=== PATIENT | male | born 1955 | race Caucasian/White ===

== ENCOUNTER → 2017-01-26 | Outpatient (CLI) | payer BC ==
[2017-01-26 16:18] LABS: EKG EKG PERFORMED
[2017-01-26 17:05] LABS: Prothrombin Time 10.3 sec (9.0-12.0)
[2017-01-26 17:06] LABS: CHCM 35.4; HCT 49.1 % (39.0-53.0); HDW 2.42; HGB 16.8 gm/dL (13.0-17.5); MCH 30.1 pg (25.0-35.0); MCHC 34.2 g/dL (31.0-37.0); MCV 87.9 fL (80.0-100.0); Mean Platelet Volume 6.9; RBC 5.59 m/uL (4.30-5.90); RDW 12.3 % (11.5-15.5); WBC 5.2 k/uL (3.8-10.6)
[2017-01-26 17:07] LABS: Appearance,Urine Clear (Clear); Bilirubin,Urine Negative (Negative); Glucose,Urine (UA) Negative (Negative); Ketones,Urine Negative (Negative); Leukocyte Esterase,Urine Negative (Negative); Nitrite,Urine Negative (Negative); PH, Urine 6.5 (5.0-8.0); Protein,Urine Trace (Negative); Specific Gravity,Urine 1.022 (1.001-1.035); UA Billing (MACRO vs. MICRO) CHEM; Urobilinogen,Urine <2.0 mg/dL (<2.0)
[2017-01-26 17:09] LABS: ALT 28 U/L (21-72); AST 17 U/L (17-59); Alkaline Phosphatase 53 U/L (38-126); Anion Gap 11 mmol/L; Blood Urea Nitrogen 17 mg/dL (9-20); Calcium 9.9 mg/dL (8.4-10.2); Carbon Dioxide 24 mmol/L (22-30); Chloride 106 mmol/L (98-107); Glucose 86 mg/dL (74-99); Non-African American GFR(MDRD) >60 (>60 ml/min/1.73 sqM); Potassium 4.7 mmol/L (3.5-5.1); Sodium 141 mmol/L (137-145); Total Bilirubin 2.3 mg/dL (0.2-1.3)
== END | disposition home or self-care (01) ==
LOC: LABPAT 16:10
PROVIDERS: ATTEND Orthopaedic Surgery
DX: Z01.810 Encounter for preprocedural cardiovascular examination (principal); Z01.812 Encounter for preprocedural laboratory examination
CPT/HCPCS: 80053; 81003; 85027; 85610; 85730; 87070; 93005

== ENCOUNTER 2017-02-11 07:30 | Inpatient (IN) | payer BC ==
[2017-02-02 12:58] VITALS: BMI 29.4
[~2017-02-11 07:30] MED LIST: ACETAMINOPHEN TAB 500 MG TAB PO ONE; FAMOTIDINE 20 MG/2 ML VIAL IV PRN; HYDROmorphone 1 MG/ML 1 ML SYRINGE IVP PRN; LIDOCAINE 1% 20 ML VIAL (10MG/ML) FOR IV START INTRADERMA PRN; MELOXICAM 7.5 MG TAB PO ONE; MIDAZOLAM 2 MG/2 ML VIAL IV PRN; TRANEXAMIC ACID 1,000 MG in SODIUM CHLORIDE 0.9% 100 ML IVPB ONE; ceFAZolin 2 GM in SODIUM CHLORIDE 0.9% 100 ML IVPB ONE; fentaNYL (PF) 50 MCG/ML 20 ML VIAL IVP PRN
[2017-02-11] MEDS: LACTATED RINGERS 1,000 ML IV SCH (11:45)
[2017-02-11] MEDS ORDERED: DIAZEPAM 5 MG TAB PO PRN ×2 (11:46)
[2017-02-11] MEDS ORDERED: HYDROmorphone 1 MG/ML 1 ML SYRINGE IVP PRN ×3 (11:46)
[2017-02-11] MEDS ORDERED: NA PHOS,M-B/NA PHOS,DI-BA 133 ML ENEMA RECTAL PRN (11:46)
[2017-02-11] MEDS ORDERED: ONDANSETRON 4 MG/2 ML VIAL IVP PRN (11:46)
[2017-02-11] MEDS ORDERED: BISACODYL 10 MG SUPP RECTAL PRN (11:46)
[2017-02-11] MEDS ORDERED: MAGNESIUM HYDROXIDE 2,400 MG/10 ML CUP PO PRN (11:46)
[2017-02-11] MEDS ORDERED: NALOXONE 0.4 MG/ML 1 ML VIAL IV PRN (11:46)
[2017-02-11] MEDS: ROPIVACAINE 246.25 MG, EPINEPHrine 0.5 MG, KETOROLAC 30 MG, cloNIDine HCL/PF 80 MCG, WA... MISCELLANE ONE ×10 (13:13→13:56)
[2017-02-11] MEDS ORDERED: ceFAZolin 3,000 MG in SODIUM CHLORIDE 0.9% IRRIGATIO 3,000 ML IRRIGATION ONE (13:17)
--- NOTE | 2017-02-11 14:19 | P.OP ---
Date of Procedure: 02/11/17 Preoperative Diagnosis: Severe osteoarthritis of the right knee with a valgus deformity Postoperative Diagnosis: Severe osteoarthritis of the right knee with a valgus deformity Procedure(s) Performed: Right total knee arthroplasty Implants: Castañeda and Nephew Oxinium femoral component size 6, right, posterior stabilized Castañeda & Nephew Tonja II right nonporous tibial baseplate size 6 Castañeda [employer] Nephew size 9 mm Legion XLPE constrained articular insert, size 5-6 Castañeda [employer] Nephew Tonja II resurfacing patellar component, 35 mm All components were cemented using [place] antibiotic Simplex P bone cement with tobramycin The articulation is ceramic on polyethylene. Anesthesia: spinal Surgeon: Reynold Colon [employer]ovoltaic Testing Technician #1: Joselyn Marrero Estimated Blood Loss (ml): 50 Pathology: other (Bone and cartilage) Condition: stable Disposition: PACU Indications for Procedure: After failure of conservative treatment we discussed the surgical and nonsurgical treatment options at length. Patient wishes to proceed with a total knee arthroplasty. Complications specific to this procedure were discussed at length, including but not limited to infection, bleeding, stiffness , and nerve injury. Patient is aware of all these complications and informed consent was obtained Operative Findings: The operative findings are consistent with severe osteoarthritis the right knee with a significant valgus deformity. Description of Procedure: Patient was seen in the preoperative area consent was reviewed and operative site was marked with a skin marker. Patient was then brought to the operating room and given preoperative antibiotics intravenously. A spinal anesthetic was administered by the anesthesia department. A tourniquet was placed on the upper thigh and the lower extremity was prepped and draped in usual sterile fashion. A gram of transexamic acid was given. A universal timeout was then performed which confirmed the patient's name, surgical site, ALLERGIES, and consent. The lower extremity was then exsanguinated and tourniquet was inflated to 250 mmHg. A standard and anterior midline approach to the knee was performed. The skin and subcutaneous tissue was dissected down to the patellar tendon. A medial parapatellar arthrotomy was then performed. The knee was then extended, the patellar was everted, and the knee was again flexed. Anterior horns of both menisci were excised, and a minimal medial release was performed because of the valgus deformity of the knee.. On gross visual inspection, there was complete loss of articular cartilage in all 3 compartments of the knee. There was also significant cartilage damage in the lateral compartment. There were multiple periarticular osteophytes which were then removed with a Ronguer. The femoral canal was then opened with the appropriate drill, and the intramedullary femoral cutting guide was then placed and set for 4 of valgus. The distal femoral cutting block was then pinned in place, and the distal femur was then cut. The cutting block was then removed and the cut was checked for flatness. Next, the sizing guide was then placed and set for 3 external rotation based off of the epicondylar axis and Whitesides line. After the femur was sized, the appropriate 4-in-1 cutting block was then pinned in place. The anterior condyles were cut without notching. The posterior and chamfer cuts were performed while protecting the collateral ligaments. The cutting block was then removed. Attention was then directed to the tibia. The remaining ACL was removed with a Ronguer, and the tibia was then gently subluxed forward with a large bent knee retractor. Any remaining menisci was excised. The posterior lateral corner was cauterized in order to cauterize the lateral geniculate artery. The extra medullary tibial cutting guide was then placed, set for the appropriate rotation , slope, and depth of resection. The proximal tibia cutting guide was then pinned in place. Proximal tibia was then cut and sized. The femoral trial was then placed. The box cutting guide was placed and then using the appropriate reamer, the bone was reamed for the box. Then the box osteotome was used to finish the reaming. Next trials were then placed with the appropriate-sized insert. The knee was able to fully extend and flex to 130 and was stable throughout all range of motion. The knee was then extended, patella everted. Patella was then measured, and then using an osteotomy guide, the patella was cut at the appropriate level. The patella was then measured and drilled and the patella trial was then placed. The knee was then taken through range of motion with the patella trial and the patella tracked normally. The knee was then extended patella trial was then removed and the patella was everted. Knee was then flexed and lug holes were drilled through the femoral trial and the femoral trial was then removed. The tibial was then exposed, and the tibial broach guide was then pinned in place after it was set for the appropriate rotation to allow for the most coverage without overhang. The tibia was then broached. The cut surfaces of bone were then irrigated with pulsatile lavage. The posterior structures were injected with the ropivacaine solution. The components were then opened, the cement was mixed, and the components were then cemented in place. The cement was allowed to harden with the knee in full extension. While the cement was hardening, the remaining soft tissues were injected with the ropivacaine solution. After the cemented hardened. The tourniquet was released, and hemostasis was obtained. A second gram of transexamic acid was given. The knee was again irrigated. The knee was again taken through range of motion and found to be stable throughout all range of motion of 0-130, and the patella tracked normally. The fascia was then closed with #2 strata fix suture. The subcutaneous tissue was closed with 3-0 Vicryl and 3-0 strata fix. Dermabond tape was used for the skin, and the patient was placed in a sterile dressing. Patient was then transferred to recovery room in stable condition. The drafter assistant JAQUELINE Cole was required due the complexity surgery and the need for a skilled surgical brace maker. She assisted in positioning, draping, retraction, and closure of the wound.
--- NOTE | 2017-02-11 14:59 | XR ---
EXAMINATION TYPE: XR knee limited RT, 2 VIEWS DATE OF EXAM ORDERED: 02/11/2017 HISTORY: Right knee arthroplasty. COMPARISON: None. FINDINGS: A right knee arthroplasty has been performed. Prosthetic elements appear in good position. There is subcutaneous and intra-articular air. IMPRESSION: STATUS POST RIGHT ARTHROPLASTY.
[2017-02-11] MEDS ORDERED: ROPIVACAINE 1,100 MG, SODIUM CHLORIDE 0.9% 330 ML MISCELLANE PRN ×2 (15:56)
--- NOTE | 2017-02-11 15:58 | P.ONQ ---
Anesthesiology Proc Note - PNB - Peripheral Nerve Block Performed Right Adductor Canal Infusion Time Out Performed: Yes Indication: Acute Post-Operative Pain, Analgesia Specifically requested for management of pain by DrTerry: Reynold Colon Sedation Type: Sedate with meaningful contact maintained Preparation: Sterile Prep Position: Supine Catheter Depth at Skin (cm): 5 Catheter: Indwelling Needle Types: Other (see comment) (PAJunk) Needle Size: 100mm (4") Needle Gauge: 21 Technique: Ultrasound Injectate: 0.5% Ropivacaine (see comment for volume) (20 cc) Blood Aspirated: No Pain Paresthesia on Injection Noted: No Resistance on Injection: Normal Events: Uneventful and Well Tolerated
[2017-02-11] MEDS: SODIUM CHLORIDE 0.9% 1,000 ML IV SCH (16:48)
[2017-02-11] MEDS: HYDROcodone/APAP 5-325MG 1 EACH TAB PO PRN (18:37)
[2017-02-11 19:50] LABS: ALT 25 U/L (21-72); AST 16 U/L (17-59); Alkaline Phosphatase 37 U/L (38-126); Anion Gap 8 mmol/L; Blood Urea Nitrogen 13 mg/dL (9-20); Calcium 8.5 mg/dL (8.4-10.2); Carbon Dioxide 25 mmol/L (22-30); Chloride 105 mmol/L (98-107); Glucose 87 mg/dL (74-99); Non-African American GFR(MDRD) >60 (>60 ml/min/1.73 sqM); Potassium 3.6 mmol/L (3.5-5.1); Sodium 138 mmol/L (137-145); Total Bilirubin 1.7 mg/dL (0.2-1.3); Total Protein 5.6 g/dL (6.3-8.2)
[2017-02-11] MEDS: ceFAZolin 2 GM in SODIUM CHLORIDE 0.9% 100 ML IVPB SCH (21:03)
[2017-02-11] MEDS: SENNOSIDES-DOCUSATE SODIUM 1 EACH TAB PO SCH (21:03)
[2017-02-12] MEDS: ASPIRIN 325 MG TAB PO SCH ×3 (00:37→21:45)
[2017-02-12] MEDS: HYDROcodone/APAP 5-325MG 1 EACH TAB PO PRN ×4 (03:19→22:47)
[2017-02-12] MEDS: ceFAZolin 2 GM in SODIUM CHLORIDE 0.9% 100 ML IVPB SCH (04:18)
[2017-02-12 06:59] LABS: Basophils % (A) 0 %; CH 31.3; CHCM 34.4; Eosinophils # (A) 0.1 k/uL (0-0.7); Eosinophils % (A) 1 %; HCT 40.7 % (39.0-53.0); HDW 2.33; Luc # (Auto) 0.05; Luc % (Auto) 1; Lymphocytes # (A) 0.8 k/uL (1.0-4.8); Lymphocytes % (A) 9 %; MCH 30.7 pg (25.0-35.0); MCHC 33.5 g/dL (31.0-37.0); MCV 91.5 fL (80.0-100.0); Mean Platelet Volume 7.4; Monocytes # (A) 0.5 k/uL (0-1.0); Monocytes % (A) 6 %; Neutrophils # (A) 6.7 k/uL (1.3-7.7); Neutrophils % (A) 83 %; RBC 4.45 m/uL (4.30-5.90); RDW 13.1 % (11.5-15.5); WBC 8.1 k/uL (3.8-10.6); WBC (Perox) 8.68
[2017-02-12 07:09] LABS: HGB 13.6 gm/dL (13.0-17.5)
[2017-02-12] MEDS: LACTATED RINGERS 1,000 ML IV SCH (08:34)
[2017-02-12] MEDS: SODIUM CHLORIDE 0.9% 1,000 ML IV SCH ×2 (08:35→17:47)
[2017-02-12] MEDS: MELOXICAM 7.5 MG TAB PO SCH (08:37)
[2017-02-12] MEDS: hydrOXYzine PAMOATE 25 MG CAP PO PRN ×2 (08:41→16:27)
--- NOTE | 2017-02-12 09:40 | CONS ---
REASON FOR CONSULTATION: Advise regarding hepatitis and other medical issues. Requested by orthopedic surgery. HISTORY OF PRESENT ILLNESS: This 61-year-old gentleman with the past medical history of liver disease, GERD, history of hepatitis B previously, history of DJD, being followed by Dr. Nina. He was admitted after total right knee joint arthroplasty by Dr. Colon. There is no history of any fevers or rigors. No history of headache, loss of consciousness or seizures. PAST MEDICAL HISTORY: History of GERD, liver disease, DJD. MEDICATIONS PRIOR TO ADMISSION: 1. Senna one tablet p.o. b.i.d. 2. Hydrocodone 5 mg q4-6h p.r.n. 3. Aspirin 325 mg p.o. daily. ALLERGIES: None. FAMILY HISTORY: History of cancer in the family. SOCIAL HISTORY: No history of smoking, no history of alcohol intake. REVIEW OF SYSTEMS: ENT: No diminished hearing. CARDIOVASCULAR: No angina. RESPIRATORY: No cough or hemoptysis. GI: No nausea. : No dysuria. NERVOUS SYSTEM: No numbness or weakness. MUSCULOSKELETAL: As mentioned earlier. HEMATOLOGY: neg ENDOCRINE: No history of diabetes or hypothyroidism. CONSTITUTIONAL: As mentioned earlier. Alert and oriented x 3. PSYCHIATRIC: As mentioned earlier. PHYSICAL EXAMINATION: Alert and oriented x3. Pulse 74, blood pressure 111/61, respirations 18, temperature normal. Pulse ox 94% on 3 liters. HEENT: Conjunctivae normal. NECK: No JVD. CARDIOVASCULAR: S1/S2 heard. RESPIRATORY: Lungs sounds diminished at the bases. No rhonchi, no crackles. ABDOMEN: Soft, nontender. LEGS: Status right knee arthroplasty. NERVOUS SYSTEM: No focal deficits. LABS: Troponin is 2.3. Otherwise, previous labs are negative. ASSESSMENT: 1. Status post right total knee arthroplasty. 2. 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 3. History of hepatitis B. 4. History of degenerative joint disease. 5. History of gastroesophageal reflux disease. RECOMMENDATIONS AND DISCUSSION: This 61-year-old gentleman presented for orthopedic surgery. At this time I recommend to continue current medication, continue symptomatic treatment. I recommend pain medication, incentive spirometry. Also recommend repeat labs including the CMP. Otherwise, we will monitor the patient closely. The patient will be asked to follow up with the primary care physician closely. Thank you, Dr. Colon, for letting us participate in the care of this patient. ERVIN
--- NOTE | 2017-02-12 10:08 | P.PN ---
Progress Note - Text 0910 anesthesia POD 1. Patient is status post right TKR with a right adductor canal catheter placed for postoperative pain relief. With ropivacaine 0.2% running at 12 mL per hour the patient's VAS is (3, 5). Catheter site is clean dry and intact. Assessment: Adequate pain relief. Plan: As before.
--- NOTE | 2017-02-12 11:11 | P.PN ---
Progress Note - Text Patient is a very pleasant 61-year-old male who is seen and examined at bedside following evaluation after undergoing a right total knee arthroplasty performed by Dr. Reynold Colon yesterday, 02/03/2017. Postsurgically, patient states his pain has been well-controlled. He feels he is improving already postsurgically. He has been able to ambulate the hallways with the assistance of physical therapy and a walker. He's been able to ambulate to the restroom significant difficulty. He currently denies any nausea, vomiting, fever, chills. He has been eating without significant difficulty. He states he had a large bowel movement this morning. He has no new complaints. Patient currently has an On-Q pain pump intact that has been working without difficulty. A CPM machine has been ordered and prescription has been signed. Physical Exam Right Total Knee Arthroplasty: Status post surgical day number 1 Patient is awake, alert, and oriented 3 Vital signs stable Good chest excursion with deep inspiration and expiration Abdomen soft nontender No signs or symptoms of DVT; no calf pain Dressing is clean, dry, and intact; no erythema, purulence, or signs of infection Patient has full foot and ankle motion without difficulty bilateral lower extremities Dorsiflexion and plantar flexion positive sustained bilaterally Neurovascular status left lower extremity intact Capillary refill lower extremity is bilaterally less than 2 seconds On-Q pain pump intact Assessment: Status post right total knee arthroplasty Plan: 1. Patient to remain weight-bear as tolerated on the lower extremity; patient may work with physical therapy to increase mobility and ambulation; ambulate with the assistance of a walker as needed 2. Continue pain control with oral and IV pain medications and On-Q pain pump as prescribed as needed 3. Dr. Child in Medicine to continue following the patient for his other medical issues 4. Patient to continue with anticoagulation therapy; currently on aspirin 325 mg 2 tabs daily 5. We'll continue to follow the patient; if the patient continues to improve, we may plan to discharge him home as early as tomorrow, 02/13/2017 6. Patient will plan to follow-up with Dr. Reynold Colon at [facility] in 2-3 weeks following discharge
[2017-02-12] MEDS: SENNOSIDES-DOCUSATE SODIUM 1 EACH TAB PO SCH (21:45)
--- NOTE | 2017-02-13 07:29 | PN ---
DATE OF SERVICE: 02/12/17 This 61-year-old gentleman was admitted with knee joint arthroplasty, improved significantly. No chest pain. No palpitations. No fever. PHYSICAL EXAMINATION: On exam, alert and oriented times three. Pulse 74. Blood pressure 127/72. Respiratory rate 16. Temperature 97.4 degrees. Pulse ox 94% on room air. HEENT: Conjunctivae normal. NECK: No JVD. Cardiovascular: S1, S2 muffled. Respiratory: Breath sounds diminished at the bases. No rhonchi and no crackles. Abdomen soft. Legs, status post right knee arthroplasty. No swelling. Nervous system: No focal deficits. LABS: CBC within normal limits. Total bilirubin 1.7. ASSESSMENT: 1. Status post right total knee joint arthroplasty. 2. 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 3. Possibly chronic hepatitis. 4. History of hepatitis B. 5. History of degenerative joint disease. 6. History of gastroesophageal reflux disease. RECOMMENDATIONS AND DISCUSSION: Continue the current medications, continue with symptomatic treatment. Incentive spirometry. Closely follow with orthopedic surgery. DVT prophylaxis. Incentive spirometry. Further recommendations to follow. MTDD
--- NOTE | 2017-02-13 08:46 | P.PN ---
Progress Note - Text 0840 anesthesia POD 2. Patient is status post right TKR under spinal anesthesia with a right adductor canal catheter placed for postoperative pain relief. Catheter site is intact clean and dry. With ropivacaine 0.2% running at 12 mL per hour patient is experiencing only mild discomfort anteriorly. Posteriorly his discomfort is greater but this is to be expected at this point.
[2017-02-13] MEDS: MELOXICAM 7.5 MG TAB PO SCH (10:01)
[2017-02-13] MEDS: ASPIRIN 325 MG TAB PO SCH ×2 (10:01→20:19)
[2017-02-13] MEDS: HYDROcodone/APAP 5-325MG 1 EACH TAB PO PRN ×3 (10:04→21:15)
--- NOTE | 2017-02-13 12:08 | US ---
EXAMINATION TYPE: US venous doppler duplex LE RT DATE OF EXAM: 02/13/2017 11:35 AM COMPARISON: NONE CLINICAL HISTORY: Right lower extremity upper calf pain w/palpation. Right leg pain and swelling, kne e replacement 02/11/17, patient on blood thinners SIDE PERFORMED: Right TECHNIQUE: The lower extremity deep venous system is examined utilizing real time linear array sonog bakari with graded compression, doppler sonography and color-flow sonography. VESSELS IMAGED: External Iliac Vein (EIV) Common Femoral Vein Deep Femoral Vein Greater Saphenous Vein * Femoral Vein Popliteal Vein Small Saphenous Vein * Proximal Calf Veins (* superficial vessels) Right Leg: Appears negative for DVT IMPRESSION: Grayscale, color doppler, spectral doppler imaging performed of the deep veins of the lo wer extremities. There is normal flow, compressibility, vascular waveforms bilaterally. No evident d eep venous arthrosis the right lower extremity at or above the knee, follow-up as indicated.
--- NOTE | 2017-02-13 13:33 | P.DS ---
Providers Date of admission: 02/11/17 10:49 Expected date of discharge: 02/13/17 Attending physician: Reynold Colon Consults: 02/11/17 11:46 Consult Physician Routine Consulting Provider: Holly Child Consult Reason/Comments: medical management Do you want consulting provider notified?: Yes Primary care physician: Holly Child - Discharge Diagnosis(es) (1) Osteoarthritis of right knee Current Visit: Yes Status: Acute (2) Acquired valgus deformity of knee Current Visit: Yes Status: Acute (3) S/P total knee arthroplasty Current Visit: Yes Status: Acute Hospital Course: This is a pleasant 61-year-old male who presented with severe osteoarthritis of the right knee with valgus deformity who failed outpatient conservative therapy. He was admitted for right total knee arthroplasty performed by Dr. Reynold Colon. The patient tolerated the procedure well and did well postoperatively. Patient continues to feel he is improving postsurgically but states he does feel slightly worse today as compared to yesterday. He states he has not received any pain medication for almost 12 hours. Since that time, he's noticed some increased pain and discomfort around the posterior knee and upper calf. An Ultrasound Venous Doppler Duplex of the right lower extremity was performed today that was negative for DVT. He has been able to perform some ambulation with the assistance of a walker without significant difficulty. He continues eat without difficulty but has not had much of an appetite. He currently denies any nausea, vomiting, fever, or chills. He states he did feel somewhat nauseous throughout the evening without pain medication but is not currently experiencing any nausea. He does feel if his symptoms continued to improve throughout the day after being able to receive some oral pain medication today, he may be ready for discharge home later this afternoon or this evening. He continues to use an on On-Q pain pump as controlled by anesthesia for some control his symptoms. Condition on day of discharge stable. Patient will be discharged home. Patient was cleared preoperatively for surgery. Patient is eating and voiding freely without difficulty. He was able to have a large bowel movement yesterday. Patient should continue to keep dressing over the right knee clean, dry, and intact. He may elevate the right knee and apply ice for comfort or support as needed. He may shower if his incision remains dry for 3 days. He should avoid excessive activities in regards to the right lower extremity. He should use the CPM machine as prescribed as instructed. At discharge, he is given prescriptions for Aspirin 325 mg 1 tab by mouth twice a day, dispense #60; Somers 5 mg/325 mg 1-2 tabs every 6 hours as needed for pain, dispense #90; Senokot 1 tab by mouth twice per day as needed for constipation, dispense #60. Patient will discontinue and dispose of On-Q pain pump as instructed by anesthesia. Pertinent studies: Ultrasound venous Doppler duplex right lower extremity performed on 02/13/2017: Appears negative for DVT with no evidence of deep venous arthrosis Physical Exam Right Total Knee Arthroplasty: Status post surgical day number 1 Patient is awake, alert, and oriented 3 Vital signs stable Good chest excursion with deep inspiration and expiration Abdomen soft nontender No signs or symptoms of DVT; no calf pain Dressing is clean, dry, and intact; no erythema, purulence, or signs of infection Some mild swelling and bruising of the right steer lateral knee mild pain to palpation No significant pain on palpation over the incision site Patient has full foot and ankle motion without difficulty bilateral lower extremities Dorsiflexion and plantar flexion positive sustained bilaterally Neurovascular status left lower extremity intact Capillary refill lower extremity is bilaterally less than 2 seconds On-Q pain pump intact Procedures: Right Total knee arthroplasty Patient Condition at Discharge: Stable Plan - Discharge Summary New Discharge Prescriptions: New Aspirin 325 mg PO BID #60 tab Hydrocodone/Acetaminophen [Somers 5-325] 1 - 2 each PO Q6HR PRN #90 tab PRN Reason: Pain Sennosides-Docusate Sodium [Senokot-S] 1 tab PO BID PRN #60 tablet PRN Reason: Constipation Discharge Medication List Aspirin 325 mg PO BID #60 tab 02/13/17 [Rx] Hydrocodone/Acetaminophen [Somers 5-325] 1 - 2 each PO Q6HR PRN #90 tab 02/13/17 [Rx] Sennosides-Docusate Sodium [Senokot-S] 1 tab PO BID PRN #60 tablet 02/13/17 [Rx] Follow up Appointment(s)/Referral(s): Reynold Colon DO [Doctor of Osteopathic Medicine] - 2 Weeks Ambulatory/Diagnostic Orders: Continuous Passive Motion (CPM) Machine [DME.AMB1] Time Frame: 2 Weeks, Location : Determined By Patient Activity/Diet/Wound Care/Special Instructions: CPM ordered through [facility], please call when discharged in order for them to deliver to home. [facility]: #[phone] Weightbearing as tolerated with a walker CPM 5-6h daily Daily dressing changes, keep incision clean and dry May shower if no drainage from incision [facility] with questions or concerns [phone] Discharge Disposition: HOME SELF-CARE
[2017-02-13] MEDS: SENNOSIDES-DOCUSATE SODIUM 1 EACH TAB PO SCH (20:19)
[2017-02-13] MEDS: SODIUM CHLORIDE 0.9% 1,000 ML IV SCH ×2 (23:05→23:06)
[2017-02-13] MEDS: LACTATED RINGERS 1,000 ML IV SCH (23:05)
[2017-02-14] MEDS: HYDROcodone/APAP 5-325MG 1 EACH TAB PO PRN ×2 (03:18→09:54)
[2017-02-14] MEDS: LACTATED RINGERS 1,000 ML IV SCH (03:56)
[2017-02-14 06:57] LABS: Basophils % (A) 0 %; CH 31.2; CHCM 34.2; Eosinophils # (A) 0.1 k/uL (0-0.7); Eosinophils % (A) 2 %; HCT 36.5 % (39.0-53.0); Luc # (Auto) 0.16; Luc % (Auto) 2; Lymphocytes # (A) 1.1 k/uL (1.0-4.8); Lymphocytes % (A) 16 %; MCH 30.2 pg (25.0-35.0); MCHC 32.9 g/dL (31.0-37.0); MCV 91.6 fL (80.0-100.0); Mean Platelet Volume 7.4; Monocytes # (A) 0.6 k/uL (0-1.0); Monocytes % (A) 9 %; Neutrophils # (A) 5.1 k/uL (1.3-7.7); Neutrophils % (A) 71 %; RBC 3.99 m/uL (4.30-5.90); RDW 12.9 % (11.5-15.5); WBC 7.2 k/uL (3.8-10.6); WBC (Perox) 7.16
[2017-02-14 07:06] VITALS: BP 108/72; PULSE 84; RESP 18; TEMP 97.6
--- NOTE | 2017-02-14 07:17 | PN ---
DATE OF SERVICE: 02/13/2017 This 61-year-old gentleman who was admitted with right total knee arthroplasty is improving significantly. No chest pain or palpitation. No fever. The patient has some leg swelling. Venous Doppler has been recommended, which showed no DVT. On exam, alert and oriented x3. The pulse is 68, blood pressure 136/76, respirations 18, temperature 97.5, pulse ox 97% on room air. HEENT: Conjunctivae normal. Oral mucosa moist. NECK: No jugular venous distention. No carotid bruit. No lymph node enlargement. CARDIOVASCULAR: S1 and S2, muffled. RESPIRATORY: Breath sounds diminished at the bases. No rhonchi, no crackles. ABDOMEN: Soft, nontender. LEGS: Status post surgery. NERVOUS SYSTEM: No focal deficits. Labs are CBC within normal limits. ASSESSMENT: 1. Status post right total knee arthroplasty. 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 3. Possible chronic hepatitis. 4. History of hepatitis B. 5. History of degenerative joint disease. 6. History of gastroesophageal reflux disease. RECOMMENDATIONS AND DISCUSSION: Recommend to continue current medications. Continue symptomatic treatment. Otherwise, I recommend close followup in the outpatient setting. Otherwise, further recommendation to follow. MTDD
[2017-02-14] MEDS: SODIUM CHLORIDE 0.9% 1,000 ML IV SCH (08:18)
[2017-02-14] MEDS: MELOXICAM 7.5 MG TAB PO SCH (08:19)
[2017-02-14] MEDS: ASPIRIN 325 MG TAB PO SCH (08:19)
--- NOTE | 2017-02-15 10:37 | PN ---
DATE OF SERVICE: 02/14/2017 This 61-year-old gentleman who was admitted after right knee arthroplasty improved significantly. No chest pain or palpitation. No fever. On exam, alert and oriented x3. Pulse 84, blood pressure 108/72, respirations 18 , temperature 97.6, pules ox 93% on room air. HEENT: Conjunctivae normal. NECK: No jugular venous distention. CARDIOVASCULAR: S1 and S2 muffled. RESPIRATORY: Breath sounds diminished at the bases. Scattered rhonchi. No crackles. ABDOMEN: Soft, nontender. LEGS: No edema, no swelling. NERVOUS SYSTEM: No focal deficits. LABS: Hemoglobin 12. ASSESSMENT: 1. Status post right total knee arthroplasty. 2. 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 3. History of hepatitis B. 4. History of degenerative joint disease. 5. History of gastroesophageal reflux disease. RECOMMENDATIONS AND DISCUSSION: Continue current medications. Continue with symptomatic treatment. Closely follow with the primary physician. Incentive spirometry. The rest of the recommendations per Orthopedic Surgery. Further recommendations to follow. MTDD
== END 2017-02-14 13:07 | disposition home or self-care (01) | DRG 470 ==
LOC: 2ORMAIN 10:49 → 3SUR 14:40
PROVIDERS: ADMIT Orthopaedic Surgery; ATTEND Orthopaedic Surgery
PROC: 0SRC0J9 Replacement of Right Knee Joint with Synthetic Substitute, Cemented, Open Approach (ICD-10-PCS; principal; 2017-02-11 12:30)
DX: M17.11 Unilateral primary osteoarthritis, right knee (principal); K75.9 Inflammatory liver disease, unspecified; G89.18 Other acute postprocedural pain; K21.9 Gastro-esophageal reflux disease without esophagitis; M21.061 Valgus deformity, not elsewhere classified, right knee; Z79.82 Long term (current) use of aspirin; Z79.899 Other long term (current) drug therapy; Z96.642 Presence of left artificial hip joint; Z86.19 Personal history of other infectious and parasitic diseases
CPT/HCPCS: 80053; 85025; 88300